=== PATIENT | male | born 1985 | race African-American/Black ===

== ENCOUNTER 2019-12-30 00:32 | Emergency (ER) | payer OTHER ==
[2019-12-30] MEDS ORDERED: DIPH/PERTUSS(ACELL)/TETANUS VAC/PF 0.5 ML SYR (>=10YO) IM ONE (01:00)
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
[2019-12-30] MEDS ORDERED: KETOROLAC TROMETHAMINE INJ/PF 30 MG/1 ML SDV IV ONE (02:23)
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
[2019-12-30] MEDS ORDERED: MORPHINE SULFATE 10 MG/ML INJ IV ONE (02:35)
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
[2019-12-30] MEDS ORDERED: HYDROCODONE/ACETAMINOPHEN 5-325 MG (6 TAB/ER DISP) PO PRN (04:01)
[2019-12-30 04:17] VITALS: BP 128/74
--- NOTE | 2019-12-30 10:16 | EKG REPORT ---
SEVERITY:- NORMAL ECG - SINUS RHYTHM : Confirmed by: Selina Singleton MD 30-Dec-2019 10:15:47
== END 2019-12-30 04:29 | disposition home or self-care (01) ==
LOC: ER 00:32
DX: S22.42XA Multiple fractures of ribs, left side, initial encounter for closed fracture (principal); S80.12XA Contusion of left lower leg, initial encounter; S70.311A Abrasion, right thigh, initial encounter; S70.312A Abrasion, left thigh, initial encounter; R07.81 Pleurodynia; M79.651 Pain in right thigh; M89.8X5 Other specified disorders of bone, thigh; V28.4XXA Motorcycle driver injured in noncollision transport accident in traffic accident, initial encounter; F17.200 Nicotine dependence, unspecified, uncomplicated; J45.909 Unspecified asthma, uncomplicated; Z23 Encounter for immunization
CPT/HCPCS: 93005; 99284; 90471; 96374; 73552; 73502; 71101; 70450; 71260; 72125; 74177; 90715; 93010; J2270

== ENCOUNTER 2020-04-18 21:18 | Emergency (ER) | payer SELFPAY ==
[2020-04-18] MEDS ORDERED: HYDROCODONE/ACETAMINOPHEN 5-325 MG TABLET PO ONE (22:04)
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
[2020-04-19] MEDS ORDERED: ACETAMINOPHEN 325 MG TABLET PO ONE (01:20)
[2020-04-19] MEDS ORDERED: OXYCODONE HCL IR 5 MG TABLET PO ONE (02:38)
[2020-04-19] MEDS ORDERED: PROMETHAZINE HCL 25 MG TABLET PO ONE (02:38)
[2020-04-19] MEDS ORDERED: LIDOCAINE 1%/EPINEPHRINE INJ 20 ML VIAL INJ ONE (02:39)
[2020-04-19] MEDS ORDERED: CEPHALEXIN 500 MG CAPSULE PO ONE (02:39)
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
[2020-04-19] MEDS ORDERED: HYDROCODONE/ACETAMINOPHEN 5-325 MG (6 TAB/ER DISP) PO PRN (04:12)
[2020-04-19 04:35] VITALS: BP 126/72
== END 2020-04-19 04:44 | disposition home or self-care (01) ==
LOC: ER 21:18
DX: S51.812A Laceration without foreign body of left forearm, initial encounter (principal); S50.311A Abrasion of right elbow, initial encounter; R07.81 Pleurodynia; V86.55XA Driver of 3- or 4- wheeled all-terrain vehicle (ATV) injured in nontraffic accident, initial encounter; F17.200 Nicotine dependence, unspecified, uncomplicated; J45.909 Unspecified asthma, uncomplicated; F32.9 Major depressive disorder, single episode, unspecified; Z79.899 Other long term (current) drug therapy
CPT/HCPCS: 99284; 73090; 71101; 12032; 12002; J3490